=== PATIENT | male | born 1950 | race Caucasian/White ===

== ENCOUNTER 2017-02-05 10:05 | Emergency (ER) | payer MEDICARE ==
--- NOTE | 2017-02-05 12:55 | XRAY Report ---
EXAM: ABDOMEN RADIOGRAPHY EXAM DATE: 02/05/2017 12:16 PM. CLINICAL HISTORY: No BM for days; ?constipation. COMPARISON: None. TECHNIQUE: 1 view. FINDINGS: Bowel Gas Pattern: Increased fecal material in the colon. There are a few air filled mildly distended small bowel loops left upper quadrant Other: No organomegaly. Phleboliths in the pelvis IMPRESSION: Constipation. Mild ileus versus early small bowel obstruction [facility] Referring Provider Line: [phone] SITE ID: [id number]
[2017-02-05] MEDS ORDERED: MINERAL OIL ENEMA 133 ML BOTTLE RC STA (13:01)
[2017-02-05 13:48] VITALS: BP 128/74
--- NOTE | 2017-02-05 14:07 | ED Physician Documentation ---
PD HPI ABD PAIN - Stated complaint Stated Complaint: CONSTIPATION - Chief complaint Chief Complaint: Abd Pain - History obtained from History obtained from: Patient - History of Present Illness Timing - onset: How many days ago (3) Associated symptoms: Constipation Similar symptoms before: Diagnosis (He reports history of similar symptoms in the past, and was treated for constipation with magnesium citrate.) - Additional information Additional information: The patient is a 66-year-old male who complains of constipation. He reports his last bowel movement was 3 or 4 days ago. He reports very slight lower abdominal discomfort, and nausea. He denies vomiting, fever, or dysuria. He reports history of similar symptoms a few months ago, and was treated with magnesium citrate for constipation. He recently drove here from [place], having arrived here 2 days ago. He denies any history of abdominal surgery. He reportedly underwent colonoscopy within the last year, and it was negative. Review of Systems Constitutional: denies: Fever Nose: denies: Congestion Throat: denies: Sore throat Respiratory: denies: Dyspnea, Cough GI: reports: Abdominal Pain (Slight intermittent lower abdominal discomfort.), Nausea, Constipation. denies: Vomiting : denies: Dysuria Skin: denies: Rash Musculoskeletal: denies: Back pain Neurologic: denies: Headache PD PAST MEDICAL HISTORY - Past Medical History Past Medical History: No Cardiovascular: Arrhythmia Endocrine/Autoimmune: None - Past Surgical History Past Surgical History: Yes - Present Medications Home Medications: Ambulatory Orders Medication Instructions Recorded Confirmed Bisacodyl Supp [Dulcolax Supp] 10 mg UT DAILY PRN #10 supp 02/05/17 Flecainide [Tambocar] 50 mg PO Q12H 02/05/17 02/05/17 Metoprolol Tartrate 02/05/17 02/05/17 - Allergies Allergies/Adverse Reactions: Allergies Allergy/AdvReac Type Severity Reaction Status Date / Time No Known Drug Allergies Allergy Verified 02/05/17 10:16 - Social History Does the pt smoke?: No Smoking Status: Former smoker Additional Social History: Arrived here from [place] 2 days ago. PD ED PE NORMAL - Vitals Vital signs reviewed: Yes (Mild hypertension initially.) - General General: Alert and oriented X 3, Well developed/nourished - HEENT HEENT: Atraumatic, EOMI, Pharynx benign - Neck Neck: No adenopathy, No JVD - Cardiac Cardiac: RRR - Respiratory Respiratory: No respiratory distress, Clear bilaterally - Abdomen Abdomen: Soft, Non tender, Non distended, No organomegaly - Rectal Rectal: Other (Stool heme neg.) - Back Back: No CVA TTP - Derm Derm: No rash - Extremities Extremities: No edema, No calf tenderness / cord - Neuro Neuro: Alert and oriented X 3, No motor deficit, Normal speech PD ED PE EXPANDED - Rectal Rectal: Heme Occult Neg - QC+ Results - Vitals Vitals: Vital Signs - 24 hr 02/05/17 13:48 Temperature 36.5 C Heart Rate 51 L Respiratory 15 Rate Blood Pressure 128/74 O2 Saturation 100 Oxygen O2 Source Room air - Rads (name of study) 1-view abdomen Radiology: Prelim report reviewed, EMP read contemporaneously, See rad report ( Constipation. Mild ileus versus early small bowel obstruction.) PD MEDICAL DECISION MAKING - ED course Complexity details: reviewed results, re-evaluated patient, considered differential, d/w patient ED course: The patient's presentation is most consistent with constipation. Abdominal x- ray reveals significant amount of stool within the colon. Few air fluid levels are noted in the left upper quadrant, but the patient's symptoms do not suggest small bowel obstruction. These are most likely due to mild ileus. Treatment in the emergency department included administration of mineral oil fleets enema, to which the patient had good results. Reexamination reveals a benign abdomen. He is being discharged with a prescription for Dulcolax suppositories. I discussed with him symptomatic treatment, outpatient follow-up , as well as potentially worrisome signs or symptoms that should prompt reevaluation in the emergency department. Departure - Departure Disposition: 01 Home, Self Care Clinical Impression: Constipation Qualifiers: Constipation type: unspecified constipation type Qualified Code(s): K59.00 - Constipation, unspecified Condition: Stable Instructions: ED Constipation Prescriptions: Bisacodyl Supp [Dulcolax Supp] 10 mg UT DAILY PRN #10 supp PRN Reason: Constipation Comments: Drink plenty of fluids. Certain fruits, such as prunes, plums, apricots, and peaches are helpful for preventing constipation. You can use milk of magnesia, 30 mL daily if needed for stool softener. You can use Dulcolax suppository as prescribed if needed for constipation. Follow-up with your primary physician, or return to the emergency department, if you develop increasing abdominal pain, persistent vomiting, or otherwise worsening symptoms. Discharge Date/Time: 02/05/17 14:13
== END 2017-02-05 14:13 | disposition home or self-care (01) ==
LOC: ED 10:05
DX: K59.00 Constipation, unspecified (principal); Z87.891 Personal history of nicotine dependence
CPT/HCPCS: 74000; 99283; A9270